=== PATIENT | male | born 1960 | race African-American/Black ===

== ENCOUNTER 2020-05-11 13:51 | Emergency (ER) | payer SELFPAY ==
[2020-05-11 14:26] LABS: Mean Corpuscular HGB CONC 34.5 g/dL (32.0-36.0); Mean Corpuscular Hemoglobin 34.7 pg (27.0-31.0); Mean Platelet Volume 6.9 fL (7.4-10.4); Platelet Count 225 thou/uL (130-400); RBC Distribution Width 12.1 % (11.5-14.5); Red Blood Cell (RBC) Count 3.74 mill/uL (4.70-6.10); White Blood Cell (WBC) Count 19.5 thou/uL (4.8-10.8)
[2020-05-11 14:33] LABS: ALT (SGPT) 16 U/L (8-55); AST (SGOT) 26 U/L (5-34); Albumin 3.8 g/dL (3.5-5.0); Alkaline Phosphatase 92 U/L (40-110); Anion Gap 18 mmol/L (10-20); BUN (Urea Nitrogen) 15 mg/dL (8.4-25.7); Bilirubin, Total 2.8 mg/dL (0.2-1.2); Calc. Creatinine Clearance 0 mL/min (70-130); Calcium 8.4 mg/dL (7.8-10.44); Carbon Dioxide 20 mmol/L (22-29); Chloride 96 mmol/L (98-107); Globulin 4.1 g/dL (2.4-3.5); Glucose 295 mg/dL (70-105); Potassium 3.8 mmol/L (3.5-5.1); Protein, Total 7.9 g/dL (6.0-8.3); Sodium 130 mmol/L (136-145)
[2020-05-11 14:36] LABS: Bilirubin Small (Negative); Blood, Urine Moderate (Negative); Clarity Clear (Clear); Glucose, Urine (Dipstick) 250 mg/dL (Negative); Ketone, Urine 15 mg/dL (Negative); Leukocyte Small (Negative); Nitrite Positive (Negative); Protein, Urine (Dipstick) 100 mg/dL (Neg-Trace); pH, Urine 5.5 (5.0-9.0)
[2020-05-11] MEDS ORDERED: Sodium Chloride 0.9% 1,000 ML ONE (14:44)
[2020-05-11 14:46] LABS: Specific Gravity, Urine Greater/Equal 1.030 (1.005-1.030)
[2020-05-11 14:47] LABS: RBC/HPF 0-3 HPF (0-3); WBC/HPF Greater Than 50 HPF (0-3)
[2020-05-11 14:48] LABS: Bacteria/HPF 2+ HPF (None Seen); Squamous Epithelial 0-3 HPF (0-3)
[2020-05-11 14:52] LABS: Band 10 % (5-11); Lymphocytes 12 % (21-51); MDiff Complete? YES; Macrocytosis SLIGHT = 6-15 cells (100X) (0-5/hpf); Monocytes 4 % (0-10); Neutrophil 74 % (42-75)
[2020-05-11] MEDS ORDERED: cefTRIAXone\\ROCEPHIN 2 GM VIAL ONE (15:14)
[2020-05-11] MEDS ORDERED: Sodium Chloride 0.9% 500 ML ONE (15:15)
--- NOTE | 2020-05-11 15:15 | RAD ---
EXAM: CHEST ONE VIEW HISTORY: Fever COMPARISON: 03/03/2017 FINDINGS: Cardiac silhouette is magnified by patient rotation. Pulmonary vasculature is at the upper limits of normal. No consolidation or pleural fluid is identified. Volume loss seen at each lung base on prior study has resolved. No other interval change. IMPRESSION: No acute cardiopulmonary process.
[2020-05-11 17:28] LABS: SARS-CoV-2 NAA Rapid Test Not Detected (NotDetected)
== END 2020-05-11 17:43 | disposition short-term general hospital (02) ==
LOC: NAV ERS 13:51
DX: A41.9 Sepsis, unspecified organism (principal); N39.0 Urinary tract infection, site not specified; E11.9 Type 2 diabetes mellitus without complications; E78.5 Hyperlipidemia, unspecified; I10 Essential (primary) hypertension; Z79.899 Other long term (current) drug therapy; Z86.73 Personal history of transient ischemic attack (TIA), and cerebral infarction without residual deficits
CPT/HCPCS: 0240U; 36415; 51702; 71045; 80053; 81003; 81015; 83605; 85025; 87040; 87077; 87086; 87186; 96365; 96366; 96374; J0696; J3370; J7030; J7050